=== PATIENT | female | born 1940 | race Caucasian/White ===

== ENCOUNTER → 2016-08-15 | Outpatient (CLI) | payer MEDICARE ==
[~2016-08-15] MED LIST: ASA325 MG PO; ASCORBIC ACID500 MG PO; BENADRYL25 MG PO; BISACODYL5 MG PO; CALTRATE-600 W600 MG PO; CELEBREX100 MG PO; DULCOLAX-DPS10 MG PR; FEOSOL-DPS325 MG PO; FLEXERIL-DPS10 MG PO; MAALOX DPS30 ML PO; MILK OF MAGNESI10 ML PO; OXY IR DPS5 MG PO; PROTONIX40 MG PO; REQUIP0.25 MG PO; SENOKOT S1 TAB PO; SURFAK DPS240 MG PO; TOPROL XL DPS25 MG PO; TUMS DPS500 MG PO; TYLENOL DPS325 MG PO; ULTRAM DPS50 MG PO; VITAMIN B-12500 MCG PO; XANAX DPS0.25 MG PO; ZOCOR40 MG PO; ZOLOFT DPS50 MG PO
== END | disposition home or self-care (01) ==
LOC: RAD.S 13:04
DX: G58.9 Mononeuropathy, unspecified (principal); G31.9 Degenerative disease of nervous system, unspecified